=== PATIENT | male | born 1970 | race Caucasian/White ===

== ENCOUNTER 2017-02-11 23:52 | Observation (INO) | payer OTHER ==
--- NOTE | 2017-02-12 00:13 | CPEKG ---
Heart Rate: 91 RR Interval: 659 P-R Interval: 168 QRSD Interval: 84 QT Interval: 336 QTC Interval: 414 P [place]: 18 QRS [place]: 10 T Wave [place]: 1 EKG Severity - BORDERLINE ECG - EKG Impression: SINUS RHYTHM EKG Impression: BORDERLINE T WAVE ABNORMALITIES Electronically Signed By: Tiffani Yanez 12-Feb-2017 19:24:27
[2017-02-12] MEDS ORDERED: NS 1,000 ML IV ONE (00:16)
--- NOTE | 2017-02-12 00:16 | EDPHY ---
H & P Stated Complaint: L arm/jaw pain HPI/ROS: HPI CHIEF COMPLAINT: Left elbow pain, left shoulder pain, left jaw pain, shortness of breath HISTORY OF PRESENT ILLNESS: This patient is a 47-year-old male significant past medical history for hypertension, hyperlipidemia, obesity, no history of cardiac disease or issues with his lung except remote history of pneumonia, no history of PE or DVT, denies chest pain, pleuritic pain or cough. He does complain shortness of breath. His pain is reproducible when he moves his left shoulder and left elbow. He is also tender to palpation over the left elbow. There is no signs of trauma, swelling or redness. He has full range of motion but with range of motion of the elbow and causes great deal of pain dull pain that radiates from his elbow up to her shoulder. Noticed this starting around 430 this afternoon while sitting at his desk. He tells me the pain is constant. He denies chest pain. Past Medical History:Hypertension, hyperlipidemia, brain tumor Past Surgical History: No recent surgical history Social History: Denies daily use drugs alcohol tobacco products Family History: Noncontributory ROS REVIEW OF SYSTEMS: A comprehensive 10 point review of systems is otherwise negative aside from elements mentioned in the history of present illness. Exam Constitutional appears well nontoxic triage nursing summary reviewed, vital signs reviewed, awake/alert. Eyes normal conjunctivae and sclera, EOMI, PERRLA. HENT normal inspection, atraumatic, moist mucus membranes, no epistaxis, neck supple/ no meningismus, no raccoon eyes. Respiratory clear to auscultation bilaterally, normal breath sounds, no respiratory distress, no wheezing. Cardiovascular rate normal, regular rhythm, no murmur, no edema, distal pulses normal. Gastrointestinal soft, non-tender, no rebound, no guarding, normal bowel sounds, no distension, no pulsatile mass. Genitourinary no CVA tenderness. Musculoskeletal full range of motion of the left arm is neurovascular intact warm extremity good distal pulse, tender palpation over the left elbow, tender palpation with range of motion left elbow tender specifically over the olecranon process, tender over the anterior shoulder joint also tender with range of motion, no warmth, no swelling, no redness, no rash, good clip baker strength. Neurovascular intact good cap refill. no midline vertebral tenderness, full range of motion, no calf swelling, no tenderness of extremities , no meningismus, good pulses, neurovascularly intact. Skin pink, warm, & dry, no rash, skin atraumatic. Neurologic awake, alert and oriented x 3, AAOx3, moves all 4 extremities equally, motor intact, sensory intact, CN II-XII intact, normal cerebellar, normal vision, normal speech. Psychiatric normal mood/affect. Heme/Lymph/Immune no lymphadenopathy. Differential Diagnosis: Includes but is not limited to in a particular order, musculoskeletal injury, tendinitis, DVT, PE, pneumonia, pleurisy, CHF, ACS Medical Decision Making: Plan for patient IV established, blood work, EKG, chest x-ray, left shoulder x-ray, left elbow x-ray, ultrasound IV Toradol for pain control. He has no chest pain. Re-evaluation: EKG interpretation by me on record in [employer] system. Impression time of [id number] this is sinus rhythm rate of 91, no acute ischemic changes appreciated specifically no ST elevation, ST depression or T-wave abnormalities. No prolonged intervals. ED x-ray chest two view negative for acute cardiopulmonary disease. Image interpreted by myself ED x-ray left elbow: negative for acute injury or fracture. Image interpreted by myself ED x-ray left shoulder: negative for acute fracture. Image interpreted by myself [id number]: I just re-evaluated this patient he tells me has ongoing jaw pain and left shoulder pain. I will order him IV fentanyl. He has no chest pain at this time. Due to ongoing jaw pain and shoulder pain history of hypertension hyperlipidemia morbid obesity I can't tell if this is an anginal equivalent. I do recommend admission for serial cardiac enzymes. [id number]: D-dimer is pending. Unclear what is causing this patient's left shoulder pain. It may be musculoskeletal. I did reexamine him and reviewed his x-rays blood work and ultrasound. There is nothing acute I found. He is neurovascular intact he has normal sensation good clip baker strength, good distal pulse. I do not think it is a vascular issue. Waiting on D-dimer to make sure this is not a pulmonary embolism. If D-dimer is positive will proceed with a CT angiogram of his chest. It is also possible that this is pain radiating from a the patient's neck leg or cervical radiculopathy. Patient denies trauma. IV fentanyl as been ordered for pain control. I have also consult the hospitalist for admission Dr. Pulido will see and evaluate the patient. Source: Patient - Personal History Current Tetanus/Diphtheria Vaccine: Yes Current Tetanus Diphtheria and Acellular Pertussis (TDAP): Yes - Medical/Surgical History Hx Asthma: Yes Hx Chronic Respiratory Disease: No Hx Diabetes: No Hx Cardiac Disease: No Hx Renal Disease: No Hx Cirrhosis: No Hx Alcoholism: No Hx HIV/AIDS: No Hx Splenectomy or Spleen Trauma: No Other PMH: PMH: pituitary prolactinoma, possible SANJIV, HTN, hyperlipidemia, hx giardia, hx recurrent pneumonia. PSH:tonsillectomy - Social History Smoking Status: Never smoked Constitutional: Initial Vital Signs Temperature (C) 37.3 C 02/11/17 23:57 Heart Rate 93 02/11/17 23:57 Respiratory Rate 16 02/11/17 23:57 Blood Pressure 141/91 H 02/11/17 23:57 O2 Sat (%) 91 L 02/11/17 23:57 O2 Delivery Mode Nasal Cannula O2 (L/minute) 2 Allergies/Adverse Reactions: hydrocodone Allergy (Intermediate, Verified 02/12/17 09:38) Vomiting lisinopril Allergy (Intermediate, Verified 02/12/17 09:38) Other-Enter Comments Home Medications: Medication Instructions Recorded Aspirin [Aspirin 81mg (*)] 81 mg PO DAILY 08/09/14 Cabergoline [Dostinex (*)] 0.5 mg PO FU@09 08/09/14 Testosterone IM [Testosterone 200 mg IM Q10D 08/09/14 100mg/ml IM inj (*)] Albuterol [Proventil Inhaler HFA 1 - 2 puffs IH DAILY PRN 07/01/16 (*)] Atorvastatin Calcium [Lipitor 40 40 mg PO DAILY 07/01/16 mg (*)] Chlorthalidone [Chlorthalidone 25 25 mg PO DAILY 07/01/16 mg (*)] Losartan Potassium [Cozaar 50 mg 50 mg PO BID 07/01/16 (*)] Multivitamins [Multivitamin (*)] 1 each PO DAILY 07/01/16 Vardenafil HCl [Levitra] 20 mg PO PRN PRN 07/01/16 oxyCODONE/APAP 5/325 [Percocet 1 tab PO Q4-6PRN PRN 07/01/16 5/325 (*)] Acetaminophen [Tylenol 325mg (*)] 650 mg PO Q4 PRN #0 tab 07/02/16 Medical Decision Making - Data Points Laboratory Results: Laboratory Results 02/12/17 00:20 02/12/17 00:20 Medications Given: Discontinued Medications Fentanyl (Sublimaze) 50 mcg IVP EDNOW ONE Stop: 02/12/17 03:34 Last Admin: 02/12/17 03:45 Dose: 50 mcg Sodium Chloride (Ns) 1,000 mls @ 0 mls/hr IV ONCE ONE PRN Reason: Wide Open Stop: 02/12/17 00:17 Last Admin: 02/12/17 00:27 Dose: 1,000 mls Ketorolac Tromethamine (Toradol) 30 mg IVP EDNOW ONE Stop: 02/12/17 00:25 Last Admin: 02/12/17 01:20 Dose: 30 mg Departure - Departure Disposition: [facility] Inpatient Acute Clinical Impression: Left arm pain Condition: Good
[2017-02-12] MEDS ORDERED: KETOROLAC 30 MG/1 ML SDV IVP ONE (00:24)
[2017-02-12 00:51] LABS: ABSOLUTE IMMATURE GRANULOCYTES 0.12 10^3/uL (0.00-0.10); ADD DIFF? NO; ADD MORPH? NO; ADD SCAN? NO; ATYPICAL LYMPHOCYTE FLAG 10 (0-99); FRAGMENT RBC FLAG 0 (0-99); HEMATOCRIT 44.6 % (40.0-51.0); HEMOGLOBIN 15.7 g/dL (13.7-17.5); LEFT SHIFT FLG 10 (0-99); LIPEMIA HEMOLYSIS FLAG 90 (0-99); MEAN CELL HEMOGLOBIN 31.1 pg (27.9-34.1); MEAN CELL HEMOGLOBIN CONCENTR. 35.2 g/dL (32.4-36.7); MEAN CELL VOLUME 88.3 fL (81.5-99.8); MEAN PLATELET VOLUME 10.1 fL (8.7-11.7); PLATELET CLUMPS FLAG 0 (0-99); PLATELET COUNT 250 10^3/uL (150-400); RED BLOOD CELL COUNT 5.05 10^6/uL (4.40-6.38); RED CELL DISTRIBUTION WIDTH 13.7 % (11.5-15.2)
[2017-02-12 01:01] LABS: ALANINE AMINOTRANSFERASE 55 IU/L (21-72); ALBUMIN 4.3 g/dL (3.5-5.0); ALKALINE PHOSPHATASE 57 IU/L (38-126); ANION GAP 12 mEq/L (8-16); ASPARTATE AMINOTRANSFERASE 30 IU/L (17-59); BILIRUBIN,TOTAL 0.6 mg/dL (0.1-1.4); BILIRUBIN-CONJUGATED 0.4 mg/dL (0.0-0.5); BILIRUBIN-UNCONJUGATED 0.2 mg/dL (0.0-1.1); CALCIUM 9.6 mg/dL (8.5-10.4); CARBON DIOXIDE 23 mEq/l (22-31); CHLORIDE 103 mEq/L (97-110); GLOMERULAR FILTRATION RATE > 60; GLUCOSE 140 mg/dL (70-100); MAGNESIUM 1.7 mg/dL (1.6-2.3); POTASSIUM 3.9 mEq/L (3.5-5.2); SODIUM 138 mEq/L (134-144); TOTAL PROTEIN 7.6 g/dL (6.3-8.2)
[2017-02-12 01:27] LABS: TROPONIN I < 0.012 ng/mL (0-0.034)
[2017-02-12] MEDS ORDERED: fentaNYL 100 MCG/2 ML INJ IVP ONE (03:33)
[2017-02-12 04:06] LABS: INR 1.07 (0.83-1.16); PROTIME(PATIENT) 13.8 SEC (12.0-15.0)
[2017-02-12 04:07] LABS: APTT 27.2 SEC (23.0-38.0)
--- NOTE | 2017-02-12 05:09 | PDGENHP ---
History and Physical - Chief Complaint L arm and jaw numbness, pain - History of Present Illness Patient is a 47 year old male with hypertension, hyperlipidemia, migraine headaches who presents to the ED with complaint of L arm discomfort and tingling. He reports around 4pm he felt a tingling in his L arm, denies any associated trauma to his arm or body recently, denies any neck pain. The paraesthesias continued and intensified over the following several hours and began radiating up his L arm into his posterior shoulder. This evening, as he was driving to meet his friends at a bar, he then began feeling the tingling sensation in his L lower jaw, associated with shortness of breath. At this point , he felt extremely anxious, so he drove himself to the ED for further evaluation. He denies any obvious anterior chest pain, palpitations, diaphoresis or dizziness. He also denies any recent fever, chills, abdominal pain, nausea, vomiting, diarrhea, dysuria or recent travel. Patient does report a family history of cardiac disease in his father's side of the family, including his father and an uncle who had early CAD. He did have a stress test several years ago, which he reports was normal. Patient denies any tobacco use, does not regularly excise. Of note, he does report an increase in the frequency and severity of his migraine headaches over the past 1 month. He does occasionally get auras with his migraines, but has never had a complex migraine. He was recently being worked up as an outpatient for lower extremity neuropathy. On arrival to the ED, pateint was afebrile, hemodynamically stable. His labs, including CBC, troponin, BMP and d-dimer were unremarkable. CXR, L extremity x- rays and LUE doppler were also unremarkable for any acute pathology. EKG showed NSR with some lateral twave flattening. He was given pain control and admitted to the hospitalist service for further management. History Information - Allergies/Home Medication List Allergies/Adverse Reactions: hydrocodone Allergy (Verified 02/11/17 23:56) Home Medications: Aspirin [Aspirin 81mg (*)] 81 mg PO DAILY 08/09/14 [Last Taken 06/30/16] Cabergoline [Dostinex (*)] 0.5 mg PO SA 08/09/14 [Last Taken 06/26/16] Testosterone IM [Testosterone 100mg/ml IM inj (*)] 200 mg IM Q10D 08/09/14 [ Last Taken 1 Week Ago] Albuterol [Proventil Inhaler HFA (*)] 1 - 2 puffs IH DAILY PRN 07/01/16 [Last Taken Unknown] Atorvastatin Calcium [Lipitor 40 mg (*)] 40 mg PO DAILY 07/01/16 [Last Taken ] Chlorthalidone [Chlorthalidone 25 mg (*)] 25 mg PO DAILY 07/01/16 [Last Taken ] Losartan Potassium [Cozaar 50 mg (*)] 50 mg PO BID 07/01/16 [Last Taken 09:00] Multivitamins [Multivitamin (*)] 1 each PO DAILY 07/01/16 [Last Taken Unknown] Vardenafil HCl [Levitra] 20 mg PO PRN PRN 07/01/16 [Last Taken Unknown] oxyCODONE/APAP 5/325 [Percocet 5/325 (*)] 1 tab PO Q4-6PRN PRN 07/01/16 [Last Taken 06/30/16 21:00] I have personally reviewed and updated: family history, medical history, social history, surgical history - Past Medical History Additional medical history: hypertension. hyperlipidemia. migraine headaches. prolactinoma - Surgical History Additional surgical history: tonsillectomy - Family History Additional family history: F: CAD in 60's. paternal uncle: CAD in early 50s - Social History Smoking Status: Never smoked Alcohol Use: Occasionally Drug Use: None Additional social history: Patient originally from [place], has lived in [place] for > 20 years. Works in [employer]. Review of Systems ROS: 10pt was reviewed & negative except for what was stated in HPI & below Physical Exam Temp Pulse Resp BP Pulse Ox 37 C 83 16 129/98 H 97 02/12/17 04:11 02/12/17 04:11 02/12/17 04:11 02/12/17 04:11 02/12/17 04:11 Constitutional: no apparent distress, appears nourished, not in pain, obese Eyes: PERRL, anicteric sclera, EOMI Ears, Nose, Mouth, Throat: moist mucous membranes, hearing normal, ears appear normal, no oral mucosal ulcers Cardiovascular: regular rate and rhythym, no murmur, rub, or gallop, pulses symmetric bilaterally, No JVD, No edema Peripheral Pulses: 2+: dorsalis-pedis (R), dorsalis-pedis (L) Respiratory: no respiratory distress, no rales or rhonchi, clear to auscultation Gastrointestinal: normoactive bowel sounds, soft, non-tender abdomen, no palpable masses, No guarding, No rebound Genitourinary: no bladder fullness, no bladder tenderness Skin: warm, normal color, no rashes or abrasions, no fluctuance, no induration, No mottled Musculoskeletal: full muscle strength, no muscle tenderness, normal joint ROM, no joint effusions Neurologic: AAOx3, sensation intact bilaterally, CN II-XII Intact, No weakness, No numbness, No pronator drift, No facial droop Psychiatric: interacting appropriately, not anxious, not encephalopathic, thought process linear Lab Data & Imaging Review 02/12/17 00:20 02/12/17 00:20 WBC 11.48 10^3/uL (3.80-9.50) H 02/12/17 00:20 RBC 5.05 10^6/uL (4.40-6.38) 02/12/17 00:20 Hgb 15.7 g/dL (13.7-17.5) 02/12/17 00:20 Hct 44.6 % (40.0-51.0) 02/12/17 00:20 MCV 88.3 fL (81.5-99.8) 02/12/17 00:20 MCH 31.1 pg (27.9-34.1) 02/12/17 00:20 MCHC 35.2 g/dL (32.4-36.7) 02/12/17 00:20 RDW 13.7 % (11.5-15.2) 02/12/17 00:20 Plt Count 250 10^3/uL (150-400) 02/12/17 00:20 MPV 10.1 fL (8.7-11.7) 02/12/17 00:20 Neut % (Auto) 65.4 % (39.3-74.2) 02/12/17 00:20 Lymph % (Auto) 20.5 % (15.0-45.0) 02/12/17 00:20 [place] % (Auto) 10.0 % (4.5-13.0) 02/12/17 00:20 Eos % (Auto) 2.1 % (0.6-7.6) 02/12/17 00:20 Baso % (Auto) 1.0 % (0.3-1.7) 02/12/17 00:20 Nucleat RBC Rel Count 0.0 % (0.0-0.2) 02/12/17 00:20 Absolute Neuts (auto) 7.51 10^3/uL (1.70-6.50) H 02/12/17 00:20 Absolute Lymphs (auto) 2.35 10^3/uL (1.00-3.00) 02/12/17 00:20 Absolute Monos (auto) 1.15 10^3/uL (0.30-0.80) H 02/12/17 00:20 Absolute Eos (auto) 0.24 10^3/uL (0.03-0.40) 02/12/17 00:20 Absolute Basos (auto) 0.11 10^3/uL (0.02-0.10) H 02/12/17 00:20 Absolute Nucleated RBC 0.00 10^3/uL (0-0.01) 02/12/17 00:20 Immature Gran % 1.0 % (0.0-1.1) 02/12/17 00:20 Immature Gran # 0.12 10^3/uL (0.00-0.10) H 02/12/17 00:20 PT 13.8 SEC (12.0-15.0) 02/12/17 03:50 INR 1.07 (0.83-1.16) 02/12/17 03:50 APTT 27.2 SEC (23.0-38.0) 02/12/17 03:50 D-Dimer < 0.27 ug/mLFEU (0.00-0.50) 02/12/17 03:50 Sodium 138 mEq/L (134-144) 02/12/17 00:20 Potassium 3.9 mEq/L (3.5-5.2) 02/12/17 00:20 Chloride 103 mEq/L (97-110) 02/12/17 00:20 Carbon Dioxide 23 mEq/l (22-31) 02/12/17 00:20 Anion Gap 12 mEq/L (8-16) 02/12/17 00:20 BUN 17 mg/dL (7-23) 02/12/17 00:20 Creatinine 1.0 mg/dL (0.7-1.3) 02/12/17 00:20 Estimated GFR > 60 02/12/17 00:20 Glucose 140 mg/dL (70-100) H 02/12/17 00:20 Calcium 9.6 mg/dL (8.5-10.4) 02/12/17 00:20 Magnesium 1.7 mg/dL (1.6-2.3) 02/12/17 00:20 Total Bilirubin 0.6 mg/dL (0.1-1.4) 02/12/17 00:20 Conjugated Bilirubin 0.4 mg/dL (0.0-0.5) 02/12/17 00:20 Unconjugated Bilirubin 0.2 mg/dL (0.0-1.1) 02/12/17 00:20 AST 30 IU/L (17-59) 02/12/17 00:20 ALT 55 IU/L (21-72) 02/12/17 00:20 Alkaline Phosphatase 57 IU/L (38-126) 02/12/17 00:20 Creatine Kinase 104 IU/L (0-224) 02/12/17 00:20 CK-MB (CK-2) Fraction 0.80 ng/mL (0-3.19) 02/12/17 00:20 Troponin I < 0.012 ng/mL (0-0.034) 02/12/17 00:20 NT-Pro-B Natriuret Pep < 11 pg/mL (0-125) 02/12/17 00:20 Total Protein 7.6 g/dL (6.3-8.2) 02/12/17 00:20 Albumin 4.3 g/dL (3.5-5.0) 02/12/17 00:20 Lipase 60.0 IU/L (23-300) 02/12/17 00:20 Visualized and Interpreted Chest x-ray results: Yes Chest X-Ray results: no infiltrate, normal Visualized and Interpreted imaging results: Yes Interpretation: X-rays of LUE: no obvious fractures, official read pending. LUE Doppler: no obvious DVT Visualized and Interpreted EKG results: Yes EKG Interpretation: Positive for: normal sinsus rhythm (lateral twave flattening ) Assessment & Plan Assessment: Patient is a 47 year old male with HTN, HLD, obesity and migraine headaches who presents to the ED with LUE paresthesias that radiated in his L jaw. ED evaluation revealed normal labs, imaging and EKG thus far. Plan: # L arm paresthesias Description of symptoms seem to be musculoskeletal in origin, possibly related to ulnar neuropathy vs cervical radiculopathy vs complex migraine (although patient currently denies headache). He is neurovascularly intact on my exam. However, given his cardiac risk factors, will rule out cardiac etiology with serial cardiac enzymes and, if negative, will further risk stratify with stress test. # hypertension BP stable on presentation. WIll confirm and cont home meds. # dispo: admit to observation status to rule out cardiac etiology of his symptoms # gen: NPO full code
[2017-02-12] MEDS: KETOROLAC 15 MG/1 ML SDV IVP SCH ×4 (05:55→18:44)
[2017-02-12 06:53] LABS: CHOLESTEROL 177 mg/dL (140-200); CHOLESTEROL/HDL RATIO 4.12 RATIO (1.00-4.97); HIGH DENSITY LIPOPROTEIN 43 mg/dL (40-65); LDL/HDL RATIO 2.07 RATIO (1.00-3.64); LOW DENSITY LIPOPROTEIN 89 mg/dL (70-100); NON-HIGH DENSITY LIPOPROTEIN 134 mg/dL (90-129); TRIGLYCERIDE 229 mg/dL (40-150); VERY LOW DENSITY LIPOPROTEINS 45 mg/dL (8-25)
[2017-02-12 07:05] LABS: TROPONIN I < 0.012 ng/mL (0-0.034)
--- NOTE | 2017-02-12 08:07 | CPEKG ---
Heart Rate: 71 RR Interval: 845 P-R Interval: 184 QRSD Interval: 86 QT Interval: 388 QTC Interval: 422 P [place]: 35 QRS [place]: 32 T Wave [place]: 2 EKG Severity - NORMAL ECG - EKG Impression: SINUS RHYTHM Electronically Signed By: Nghia Kwok 12-Feb-2017 12:57:43
[2017-02-12] MEDS ORDERED: OXYCODONE/APAP 5/325 TAB PO PRN (09:54)
[2017-02-12] MEDS ORDERED: ALBUTEROL 60 PUFFS/8 GM MDI IH PRN (09:54)
[2017-02-12] MEDS ORDERED: ACETAMINOPHEN 325 MG TAB PO PRN (09:54)
[2017-02-12] MEDS ORDERED: REGADENOSON 0.4 MG/5 ML SYR IVP ONE (11:53)
[2017-02-12] MEDS: CHLORTHALIDONE 25 MG TAB PO SCH (13:10)
[2017-02-12] MEDS: ATORVASTATIN CALCIUM 40 MG TAB PO SCH (13:10)
[2017-02-12] MEDS: ASPIRIN 81 MG CHEWABLE TAB PO SCH (13:27)
--- NOTE | 2017-02-12 13:52 | CPR ---
[f rep st] NONINVASIVE CARDIAC PROCEDURE REPORT PROCEDURE: Exercise treadmill study MPI study INDICATION FOR PROCEDURE: Chest pressure, abnormal electrocardiogram. PRE: After obtaining informed consent, patient was placed on electrocardiogram. Initial EKG shows sinus rhythm, normal axis, Q-waves noted in V1 and V2, nonspecific T-wave abnormalities in inferior leads. The patient denies any chest pain, shortness of breath, initial blood pressure of 134/76. STRESS: 1. Patient placed on exercise treadmill, following standard Robert protocol the following findings. 2. Patient exercised for 6 minutes and 29 seconds. 3. 7.6 METS. 4. Attained a heart rate of 152 BPM which was 88% of MPHR. 5. Patient had no chest pains or symptoms suggesting of ischemia at peak exercise. 6. Patient did have submillimeter upsloping ST depression in lead I ( nondiagnostic for ischemia). 7. Patient had no ectopy throughout the testing. 8. BP variation. Resting blood pressure 134/76, blood pressure at peak 210/80. 9. Patient noted to have SpO2 to drop to 86% at peak exercise. 10. Test was stopped due to maximum effort. 11. Barr treadmill score of 6, placing patient at low cardiovascular risk. RECOVERY: Patient recovered for 5 minutes, within that time when heart rate did return back to normal, final blood pressure SpO2 returned back to 90% within 1 minute, greater than 90% after 1 minute of recovery. Final blood pressure score of 188/86. The patient remains with no chest pain and no symptoms of ischemia. No ectopy noted. IMPRESSION: A 47-year-old male reporting an episode of chest pressure, wound to the arm, underwent going ETT MPI study, the patient exercised for 6 minutes and 29 seconds, had no symptoms of ischemia, EKG at peak exercise, nondiagnostic for ischemia, no ectopy noted throughout the study, patient was noted to have hypertensive response with exercise, and desaturated down to 86% at peak exercise, which returned back to normal. Barr treadmill score of 6, placing him at low cardiovascular risk. Results went over with Dr. Foley. /[id number]/MODL MTDD
[2017-02-12] MEDS: OXYCODONE/APAP 5/325 TAB PO PRN (18:48)
[2017-02-12] MEDS: LOSARTAN POTASSIUM 50 MG TAB PO SCH (19:39)
[2017-02-13] MEDS: OXYCODONE/APAP 5/325 TAB PO PRN (01:50)
[2017-02-13] MEDS: KETOROLAC 15 MG/1 ML SDV IVP SCH (04:09)
--- NOTE | 2017-02-13 05:57 | CPEKG ---
Heart Rate: 76 RR Interval: 789 P-R Interval: 168 QRSD Interval: 84 QT Interval: 392 QTC Interval: 441 P [place]: 44 QRS [place]: 57 T Wave [place]: 12 EKG Severity - NORMAL ECG - EKG Impression: SINUS RHYTHM Electronically Signed By: Tiffani Yanez 13-Feb-2017 15:28:01
[2017-02-13 08:48] VITALS: BP 127/80; PULSE 74; RESP 20; TEMP 97.7; O2SAT 90
[2017-02-13] MEDS: CHLORTHALIDONE 25 MG TAB PO SCH (08:50)
[2017-02-13] MEDS: ATORVASTATIN CALCIUM 40 MG TAB PO SCH (08:50)
[2017-02-13] MEDS: LOSARTAN POTASSIUM 50 MG TAB PO SCH (08:51)
[2017-02-13] MEDS ORDERED: CABERGOLINE 0.5 MG TAB PO SCH (09:00)
[2017-02-13] MEDS ORDERED: MULTIVITAMINS 1 EACH TAB PO SCH (09:00)
[2017-02-13] MEDS: ASPIRIN 81 MG CHEWABLE TAB PO SCH (10:40)
--- NOTE | 2017-02-13 11:26 | HOSPPROG ---
Hospitalist Progress Note Assessment/Plan: 47 yo M w arm pain neg trop tele and stress home today see dc summary Objective: Vital Signs Temp Pulse Resp BP Pulse Ox 36.5 C 74 20 127/80 H 90 L 02/13/17 08:48 02/13/17 08:48 02/13/17 08:48 02/13/17 08:48 02/13/17 08:48 02/12/17 02/13/17 02/14/17 05:59 05:59 05:59 Intake Total 1000 800 Balance 1000 800 PT 13.8 SEC (12.0-15.0) 02/12/17 03:50 INR 1.07 (0.83-1.16) 02/12/17 03:50 - Physical Exam Constitutional: no apparent distress, appears nourished Eyes: PERRL, anicteric sclera Ears, Nose, Mouth, Throat: moist mucous membranes, hearing normal Cardiovascular: regular rate and rhythym, no murmur, rub, or gallop Respiratory: no respiratory distress, no rales or rhonchi Gastrointestinal: normoactive bowel sounds Genitourinary: No garcia in urethra Skin: warm, normal color Musculoskeletal: full muscle strength, no muscle tenderness ICD10 Worksheet Patient Problems: Problems Problem Status Onset Left arm pain Acute Abdominal pain Acute
--- NOTE | 2017-02-13 11:48 | GDS ---
[f rep st] DISCHARGE SUMMARY DISCHARGE DIAGNOSES: 1. Hypertension. 2. Hyperlipidemia. 3. Arm pain. Please see admission History and Physical by Dr. Justa Pulido. The patient presented with arm pain. He had a nonischemic EKG, negative shoulder films, troponins that were negative. Stress imag es showed 6 minutes on the Robert protocol with no EKG changes, but he had some possible inferior thi nning. The rest images were the same. He is discharged home on unchanged medication regimen. /[id number]/MODL
[2017-02-17] MEDS ORDERED: TESTOSTERONE IM 100 MG/ML SYRINGE IM SCH (10:00)
== END 2017-02-13 12:50 | disposition home or self-care (01) ==
LOC: F2W 02-12 05:29
PROVIDERS: ADMIT Internal Medicine; ATTEND Internal Medicine
DX: I10 Essential (primary) hypertension (principal); E78.5 Hyperlipidemia, unspecified; M25.512 Pain in left shoulder; E66.9 Obesity, unspecified; Z87.01 Personal history of pneumonia (recurrent); Z86.011 Personal history of benign neoplasm of the brain; Z82.49 Family history of ischemic heart disease and other diseases of the circulatory system
CPT/HCPCS: 71020; 73030; 73080; 78452; 93005; 93017; 93971; 96374; 96375; 99285; A9500; J1885; J2785; J3010; J8515

== ENCOUNTER 2017-04-25 12:17 | Day surgery (SDC) | payer OTHER ==
[2017-04-25] MEDS ORDERED: LR 1,000 ML IV ONE (13:03)
[2017-04-25] MEDS ORDERED: LIDOCAINE 1% 2 ML INJ ID PRN (13:03)
[2017-04-25] MEDS ORDERED: ACETAMINOPHEN 500 MG TAB PO PRN (13:56)
[2017-04-25] MEDS ORDERED: ONDANSETRON 4 MG/2 ML VIAL IVP PRN (13:56)
[2017-04-25] MEDS ORDERED: OXYCODONE/APAP 5/325 TAB PO PRN (13:56)
[2017-04-25] MEDS ORDERED: NALOXONE HCL 0.4 MG/ML INJ IVP PRN (13:56)
[2017-04-25] MEDS ORDERED: PROMETHAZINE HCL 25 MG/ML INJ IVP PRN (13:56)
[2017-04-25] MEDS ORDERED: fentaNYL 100 MCG/2 ML INJ IVP PRN (13:56)
--- NOTE | 2017-04-25 13:56 | PDANEPAE ---
ANE History of Present Illness blood in stool ANE Past Medical History - Cardiovascular History Hx Hypertension: Yes Hx Arrhythmias: No Hx Chest Pain: No Hx Coronary Artery / Peripheral Vascular Disease: No Hx CHF / Valvular Disease: No Hx Palpitations: No - Pulmonary History Hx COPD: No Hx Asthma/Reactive Airway Disease: No Hx Recent Upper Respiratory Infection: No Hx Oxygen in Use at Home: No - Neurologic History Hx Cerebrovascular Accident: No Hx Seizures: No Hx Dementia: No - Endocrine History Hx Diabetes: No - Renal History Hx Renal Disorders: No - Liver History Hx Hepatic Disorders: No - Neurological & Psychiatric Hx Hx Neurological and Psychiatric Disorders: Yes - Cancer History Hx Cancer: No - Congenital Disorder History Hx Congenital Disorders: No - GI History Hx Gastrointestinal Disorders: No - Chronic Pain History Chronic Pain: No ANE Review of Systems - Exercise capacity Exercise capacity: >=4 METS METS (RN): 4 METS - Systems Constitutional: Reports: no symptoms EENMT: Reports: no symptoms Cardiac: Reports: no symptoms Gastrointestinal: Reports: black stools Neurological: Reports: tremors (prolactinoma), other ANE Patient History - Allergies Allergies/Adverse Reactions: hydrocodone Allergy (Intermediate, Verified 04/19/17 15:18) Vomiting lisinopril Allergy (Intermediate, Verified 04/19/17 15:18) Other-Enter Comments - Home Medications Home Medications: Aspirin [Aspirin 81mg (*)] 81 mg PO DAILY 08/09/14 [Last Taken 04/18/17] Cabergoline [Dostinex (*)] 0.5 mg PO FU@09 08/09/14 [Last Taken 04/24/17] Testosterone IM [Testosterone 100mg/ml IM inj (*)] 200 mg IM Q10D 08/09/14 [ Last Taken 02/07/17] Albuterol [Proventil Inhaler HFA (*)] 1 - 2 puffs IH DAILY PRN 07/01/16 [Last Taken Unknown] Atorvastatin Calcium [Lipitor 40 mg (*)] 40 mg PO DAILY 07/01/16 [Last Taken 06:00] Chlorthalidone [Chlorthalidone 25 mg (*)] 25 mg PO DAILY 07/01/16 [Last Taken ] Losartan Potassium [Cozaar 50 mg (*)] 50 mg PO BID 07/01/16 [Last Taken 06:00] Multivitamins [Multivitamin (*)] 1 each PO DAILY 07/01/16 [Last Taken 04/24/17] Vardenafil HCl [Levitra] 20 mg PO PRN PRN 07/01/16 [Last Taken 04/17/17] - NPO status NPO Since - Liquids (Date): 04/24/17 NPO Since - Liquids (Time): 22:00 NPO Since - Solids (Date): 04/24/17 NPO Since - Solids (Time): 08:00 - Smoking Hx Smoking Status: Never smoked ANE Labs/Vital Signs - Vital Signs Blood Pressure: 139/99 Heart Rate: 82 Respiratory Rate: 16 O2 Sat (%): 91 Height: 185.42 cm Weight: 151.953 kg ANE Physical Exam - Airway Mallampati Score: Class 2 Mouth exam: normal dental/mouth exam - Pulmonary Pulmonary: no respiratory distress - Cardiovascular Cardiovascular: regular rate and rhythym - ASA Status ASA Status: III ANE Anesthesia Plan Anesthesia Plan: GA with mask
[2017-04-25] MEDS ORDERED: LIDOCAINE 2% 5 ML SDV ONE (13:58)
[2017-04-25] MEDS ORDERED: PROPOFOL/EMULSION 500 MG/50 ML BOTTLE IV ONE ×2 (13:58→14:28)
--- NOTE | 2017-04-25 14:02 | PDGENHP ---
History & Physical Chief Complaint: abdominal pain, blood in stools History of Present Illness: 47 year old male presents with complaints of LUQ/ LLQ pain, change in bowel habits, diarrhea and blood in stools. Pertinent Past, Social, Family History: SoHx: no cigs. + alcohol. FaMHx: No CRC. PMx: prolactinoma Relevant Physical Exam: HEENT: Anicteric. CV: RRR +s1s2. No m/r/g. Lungs: CTAB. No w/r/r. Abd: soft, nt, + bs. Cardiorespiratory Assessment: ASA 3
--- NOTE | 2017-04-25 14:48 | POSTOPPROG ---
Post Op Note Date of Operation: 04/25/17 Surgeon: Nikolai Veronica Anesthesia: LMA Pre-op Diagnosis: diarrhea, abdominal pain, dsyphagia Post-op Diagnosis: diarrhea, abd pain,dysphaiga Indication: diarrhea, abd pain Procedure: egd with bx, colonoscopy with bx. Findings: gastritis, gsatric polyps Inf/Abcess present in the surg proc area at time of surgery?: No
[2017-04-25 15:50] VITALS: RESP 14
[2017-04-25 15:55] VITALS: TEMP 98.1
[2017-04-25 16:04] VITALS: BP 137/84; PULSE 86; O2SAT 93
--- NOTE | 2017-04-25 16:16 | POSTANESTH ---
Post Anesthetic Evaluation Cardiovascular Status: Normal, Stable Respiratory Status: Normal, Stable Level of Consciousness/Mental Status: Can Participate in Eval Pain Control: Adequate, Prn Tx Ordered Nausea/Vomiting Control: Adequate, Prn Tx Ordered Complications Possibly Related to Anesthesia: None Noted
--- NOTE | 2017-04-25 17:29 | GPN ---
[f rep st] PROCEDURE NOTE DATE OF PROCEDURE: 04/25/2017 PROCEDURE: Esophagogastroduodenoscopy with biopsy. INDICATION: The patient is a 47-year-old male, who presents with complaints of dysphagia, left upper quadrant abdominal pain as well as diarrhea. CONSENT: Risks, benefits, and alternatives of the procedure were discussed in great detail with the patient. Risks of infection, bleeding, perforation, and sedation were discussed. All questions answered. Informed consent obtained. MEDICATIONS: Propofol. Please see anesthesiology record for details. ESTIMATED BLOOD LOSS: Insignificant. ESOPHAGOGASTRODUODENOSCOPY EXAMINATION: The Olympus upper endoscope was inserted into the mouth and advanced into the esophagus. The proximal esophagus was normal in appearance except for an inlet patch. In the midesophagus, biopsies were taken to rule out eosinophilic esophagitis. In the midesophagus, a 3 mm polyp was seen and removed by biopsy forceps. The distal esophagus was normal in appearance. The stomach was entered and closely examined, including retroflexed views of the angularis, cardia and fundus. The mucosa in the antrum and body was erythematous in a patchy distribution, and biopsies were taken. Multiple small sessile polyps were seen on the greater curvature, and biopsies were taken. The duodenal bulb and second portion of duodenum were normal in appearance. Biopsies were taken to rule out celiac sprue. IMPRESSION: 1. Esophageal polyp status post biopsy. 2. Biopsies to rule out eosinophilic esophagitis. 3. Gastritis status post biopsy. 4. Gastric polyp status post biopsy. 5. Biopsies to rule out celiac sprue. 6. No obvious cause of symptoms seen. GERD versus functional versus other? Consider trial of PPI and antispasmodic therapy. RECOMMENDATIONS: 1. Follow up on biopsy results. 2. Proceed with colonoscopy. /[id number]/MODL MTDD
--- NOTE | 2017-04-25 18:49 | GPN ---
[f rep st] PROCEDURE NOTE DATE OF PROCEDURE: 04/25/2017 PROCEDURE: Colonoscopy with biopsy. INDICATION: The patient is a 47-year-old male, who presents for evaluation of blood in his stools as well as a change in bowel habits. He presents for further evaluation. CONSENT: Risks, benefits, and alternatives of the procedure were discussed in great detail with the patient. Risks of infection, bleeding, perforation, and sedation were discussed. All questions answered. Informed consent was obtained. MEDICATIONS: Propofol. Please see anesthesiology record for details. ESTIMATED BLOOD LOSS: Insignificant. COLONOSCOPIC EVALUATION: A rectal exam was done and internal hemorrhoids were noted. The Olympus adult colonoscope was introduced into the rectum and advanced to the cecum, where the ileocecal valve and appendiceal orifice were seen. The quality of prep was fair. The colonic mucosa was carefully examined on both insertion and withdrawal of the scope. No masses or polyps were seen. Random biopsies were taken to rule out microscopic colitis. IMPRESSION: 1. Hemorrhoids. 2. Random biopsies for microscopic colitis. 3. Etiology? No cause of symptoms seen. Functional? Start trail of antispasmodic. RECOMMENDATIONS: 1. Await biopsy results. 2. Follow up in the office in 6 weeks. /[id number]/MODL MTDD
== END 2017-04-25 16:34 | disposition home or self-care (01) ==
LOC: FSGY 12:17
PROVIDERS: ATTEND Internal Medicine Gastroenterology
PROC: 0DB28ZX Excision of Middle Esophagus, Via Natural or Artificial Opening Endoscopic, Diagnostic (ICD-10-PCS; principal; 2017-04-25 13:45)
PROC: 0DBE8ZX Excision of Large Intestine, Via Natural or Artificial Opening Endoscopic, Diagnostic (ICD-10-PCS; principal; 2017-04-25 13:45)
PROC: 0DB68ZX Excision of Stomach, Via Natural or Artificial Opening Endoscopic, Diagnostic (ICD-10-PCS; principal; 2017-04-25 13:45)
PROC: 0DB38ZX Excision of Lower Esophagus, Via Natural or Artificial Opening Endoscopic, Diagnostic (ICD-10-PCS; principal; 2017-04-25 13:45)
PROC: 0DB98ZX Excision of Duodenum, Via Natural or Artificial Opening Endoscopic, Diagnostic (ICD-10-PCS; principal; 2017-04-25 13:45)
DX: R10.32 Left lower quadrant pain (principal); R10.12 Left upper quadrant pain; K29.70 Gastritis, unspecified, without bleeding; K31.7 Polyp of stomach and duodenum; K31.89 Other diseases of stomach and duodenum; R19.7 Diarrhea, unspecified; K92.1 Melena; R19.4 Change in bowel habit; R13.10 Dysphagia, unspecified; K64.8 Other hemorrhoids
CPT/HCPCS: J2704

== ENCOUNTER → 2017-06-04 | Outpatient (CLI) | payer OTHER | LOC: FCPNEURO 21:22 | PROVIDERS: ATTEND Internal Medicine Sleep Medicine | DX: G47.31 Primary central sleep apnea (principal); G47.33 Obstructive sleep apnea (adult) (pediatric) ==

== ENCOUNTER → 2017-06-30 | Outpatient (CLI) | payer OTHER | LOC: FIMAGING 13:18 | PROVIDERS: ATTEND Physician Assistant | DX: M79.642 Pain in left hand (principal); W19.XXXA Unspecified fall, initial encounter ==

== ENCOUNTER → 2018-08-29 | Outpatient (CLI) | payer OTHER | LOC: FIMAGING 16:47 | PROVIDERS: ATTEND Registered Nurse | DX: S93.401A Sprain of unspecified ligament of right ankle, initial encounter (principal); Q65.89 Other specified congenital deformities of hip; M53.3 Sacrococcygeal disorders, not elsewhere classified ==

== ENCOUNTER → 2018-08-29 | Outpatient (CLI) | payer OTHER | LOC: FIMAGING 10:02 | PROVIDERS: ATTEND Family Medicine | DX: R91.1 Solitary pulmonary nodule (principal); R59.0 Localized enlarged lymph nodes ==

== ENCOUNTER 2018-09-09 00:26 | Emergency (ER) | payer OTHER ==
[2018-09-09] MEDS ORDERED: NS 1,000 ML IV ONE (00:53)
[2018-09-09] MEDS ORDERED: IBUPROFEN 800 MG TAB PO ONE (00:54)
--- NOTE | 2018-09-09 00:54 | EDPHY ---
H & P Stated Complaint: Fell in bathroom approx 1 hour ago c/o MINOR and back pain. Time Seen by Provider: 09/09/18 00:54 HPI/ROS: HPI CHIEF COMPLAINT: Fall, head strike HISTORY OF PRESENT ILLNESS: 48-year-old male, history of GERD, peripheral neuropathy, intestinal issues, hypertension, hyperlipidemia and obesity, presents emergency room after he fell in his bathroom. He is unsure exactly what caused him to fall. Is not recall the events exactly. He denies any chest pain shortness of breath. Main complaint is right posterior headache where he struck his head. No laceration. He denies any neck pain. Denies chest pain or shortness of breath. He also complains of right lateral lower rib pain. Past Medical History: Intracranial tumor from , GERD, hypertension "intestinal issues", peripheral neuropathy Past Surgical History: No recent surgery Social History: Denies drugs alcohol tobacco. Family History: Noncontributory ROS REVIEW OF SYSTEMS: 10 Systems were reviewed and negative with the exception of the elements mentioned in the history of present illness. Exam Constitutional appears well nontoxic no acute distress triage nursing summary reviewed, vital signs reviewed, awake/alert. Eyes normal conjunctivae and sclera, EOMI, PERRLA. HENT head/neck atraumatic on exam however patient complains of right posterior occiput pain, mildly tender, no hematoma, no scalp black, moist mucus membranes, no epistaxis, neck supple/ no meningismus, no raccoon eyes. Respiratory clear to auscultation bilaterally, normal breath sounds, no respiratory distress, no wheezing. Cardiovascular chest wall; no crepitus, some mild tender palpation right lateral chest wall mid axillary line. Lower chest wall. rate normal, regular rhythm, no murmur, no edema, distal pulses normal. Gastrointestinal no abdominal pain on exam soft, non-tender, no rebound, no guarding, normal bowel sounds, no distension, no pulsatile mass. Genitourinary no CVA tenderness. Musculoskeletal no midline vertebral tenderness, full range of motion, no calf swelling, no tenderness of extremities, no meningismus, good pulses, neurovascularly intact. Skin pink, warm, & dry, no rash, skin atraumatic. Neurologic awake, alert and oriented x 3, AAOx3, moves all 4 extremities equally, motor intact, sensory intact, CN II-XII intact, normal cerebellar, normal vision, normal speech. Psychiatric normal mood/affect. Heme/Lymph/Immune no lymphadenopathy. Differential Diagnosis: Includes but is not limited to in a particular order multiple contusions, mechanical trip and fall, syncope, dehydration, electrolyte disturbance, cardiac arrhythmia, vasovagal syncope, mi, rib fractures, closed head injury, intracranial bleed, skull fracture Medical Decision Making: Plan for this patient CT scan head without contrast for trauma, chest x-ray two view for repeat evaluation, basic blood work, EKG, IV fluid bolus, ibuprofen for pain control re-evaluate. Re-evaluation: CT scan head without contrast for trauma and fall. Negative for acute traumatic injury called to me by Dr. Amaya. EKG interpretation by me on record in [facility] system. Impression time of EKG 1:27 a.m. Sinus rhythm rate of 76, no signs of acute ischemia no signs of cardiac arrhythmia. No ST elevation no ST depression or T-wave abnormalities no prolonged intervals. Unremarkable EKG. Patient's blood work reviewed. Additionally patient's EKG reviewed patient's EKG reveals no signs of ischemia or cardiac arrhythmia. The patient has been monitored for over 3 hr in the emergency room no signs of cardiac arrhythmia The patient's chest x-ray negative for acute traumatic injury. I did re-evaluate the patient at 3:43 a.m. Is resting comfortably no acute distress. Neurological exam is unremarkable. Given that he fell and had head strike it is possibly the patient has a concussion or closed his injury I have discussed return precautions with the patient understands return emergency develops worsening headache, vomiting not doing well. - Personal History Current Tetanus Diphtheria and Acellular Pertussis (TDAP): Yes - Medical/Surgical History Hx Asthma: Yes Hx Chronic Respiratory Disease: No Hx Diabetes: No Hx Cardiac Disease: No Hx Renal Disease: No Hx Cirrhosis: No Hx Alcoholism: No Hx HIV/AIDS: No Hx Splenectomy or Spleen Trauma: No Other PMH: PMH: pituitary prolactinoma, possible SANJIV, HTN, hyperlipidemia, hx giardia, hx recurrent pneumonia. PSH:tonsillectomy - Social History Smoking Status: Never smoked Constitutional: Initial Vital Signs Temperature (C) 36.5 C 09/09/18 00:36 Heart Rate 80 09/09/18 00:36 Respiratory Rate 18 09/09/18 00:36 Blood Pressure 149/90 H 09/09/18 00:36 O2 Sat (%) 96 09/09/18 00:36 O2 Delivery Mode Room Air Allergies/Adverse Reactions: hydrocodone Allergy (Intermediate, Verified 04/19/17 15:18) Vomiting lisinopril Allergy (Intermediate, Verified 04/19/17 15:18) Other-Enter Comments Home Medications: Medication Instructions Recorded Aspirin [Aspirin 81mg (*)] 81 mg PO DAILY 08/09/14 Testosterone IM [Testosterone 200 mg IM Q10D 08/09/14 100mg/ml IM inj (*)] Albuterol [Proventil Inhaler HFA 1 - 2 puffs IH DAILY PRN 07/01/16 (*)] Atorvastatin Calcium [Lipitor 40 40 mg PO DAILY 07/01/16 mg (*)] Chlorthalidone [Chlorthalidone 25 25 mg PO DAILY 07/01/16 mg (*)] Multivitamins [Multivitamin (*)] 1 each PO DAILY 07/01/16 Acetaminophen [Tylenol ES 500 mg 500 mg PO Q6HRS PRN #0 tab 04/25/17 (*)] Naloxone HCl [Narcan] 0.1 mg IVP Q2M PRN #0 inj 04/25/17 Cabergoline 09/09/18 DULoxetine 09/09/18 Dicyclomine 09/09/18 Gabapentin 09/09/18 Vitamin B-12 09/09/18 Medical Decision Making - Data Points Laboratory Results: Laboratory Results 09/09/18 01:15 09/09/18 01:15 09/09/18 09/09/18 09/09/18 01:22 01:15 01:15 WBC 9.88 10^3/uL H 10^3/uL (3.80-9.50) RBC 4.42 10^6/uL 10^6/uL (4.40-6.38) Hgb 13.9 g/dL g/dL (13.7-17.5) Hct 39.7 % L % (40.0-51.0) MCV 89.8 fL fL (81.5-99.8) MCH 31.4 pg pg (27.9-34.1) MCHC 35.0 g/dL g/dL (32.4-36.7) RDW 13.7 % % (11.5-15.2) Plt Count 245 10^3/uL 10^3/uL (150-400) MPV 10.4 fL fL (8.7-11.7) Neut % (Auto) 64.8 % % (39.3-74.2) Lymph % (Auto) 23.2 % % (15.0-45.0) Mcmullen % (Auto) 8.1 % % (4.5-13.0) Eos % (Auto) 2.8 % % (0.6-7.6) Baso % (Auto) 0.6 % % (0.3-1.7) Nucleat RBC Rel Count 0.0 % % (0.0-0.2) Absolute Neuts (auto) 6.40 10^3/uL 10^3/uL (1.70-6.50) Absolute Lymphs (auto) 2.29 10^3/uL 10^3/uL (1.00-3.00) Absolute Monos (auto) 0.80 10^3/uL 10^3/uL (0.30-0.80) Absolute Eos (auto) 0.28 10^3/uL 10^3/uL (0.03-0.40) Absolute Basos (auto) 0.06 10^3/uL 10^3/uL (0.02-0.10) Absolute Nucleated RBC 0.00 10^3/uL 10^3/uL (0-0.01) Immature Gran % 0.5 % % (0.0-1.1) Immature Gran # 0.05 10^3/uL 10^3/uL (0.00-0.10) Sodium 137 mEq/L mEq/L (135-145) Potassium 3.9 mEq/L mEq/L (3.3-5.0) Chloride 101 mEq/L mEq/L (97-110) Carbon Dioxide 25 mEq/l mEq/l (22-31) Anion Gap 11 mEq/L mEq/L (6-14) BUN 14 mg/dL mg/dL (7-23) Creatinine 0.9 mg/dL mg/dL (0.7-1.3) Estimated GFR > 60 Glucose 95 mg/dL mg/dL (70-100) Calcium 9.4 mg/dL mg/dL (8.5-10.4) Magnesium 1.8 mg/dL mg/dL (1.6-2.3) Total Bilirubin 0.5 mg/dL mg/dL (0.1-1.4) Conjugated Bilirubin 0.2 mg/dL mg/dL (0.0-0.5) Unconjugated Bilirubin 0.3 mg/dL mg/dL (0.0-1.1) AST 30 IU/L IU/L (17-59) ALT 47 IU/L IU/L (21-72) Alkaline Phosphatase 74 IU/L IU/L (38-126) POC Troponin I 0.00 ng/mL ng/mL (0.00-0.08) Total Protein 7.2 g/dL g/dL (6.3-8.2) Albumin 4.1 g/dL g/dL (3.5-5.0) Medications Given: Discontinued Medications Sodium Chloride (Ns) 1,000 mls @ 0 mls/hr IV EDNOW ONE; Wide Open PRN Reason: Protocol Stop: 09/09/18 00:54 Last Admin: 09/09/18 01:14 Dose: 1,000 mls Ibuprofen (Motrin) 800 mg PO EDNOW ONE Stop: 09/09/18 00:55 Last Admin: 09/09/18 01:20 Dose: Not Given Point of Care Test Results: Chemistry 09/09/18 01:22 POC Troponin I 0.00 ng/mL ng/mL (0.00-0.08) Departure - Departure Disposition: Home, Routine, Self-Care Clinical Impression: Head injury Qualifiers: Encounter type: initial encounter Qualified Code(s): S09.90XA - Unspecified injury of head, initial encounter Concussion Qualifiers: Encounter type: initial encounter Loss of consciousness presence/duration: without LOC Qualified Code(s): S06.0X0A - Concussion without loss of consciousness, initial encounter Condition: Good Instructions: Head Injury (ED), Concussion (ED) Additional Instructions: 1. Follow up with her primary care doctor 2. Return to the ER for worsening symptoms Referrals: Ilia Soria MD [Primary Care Provider] - As per Instructions Lala Lutz MD [Medical Doctor] - As per Instructions
[2018-09-09 01:44] LABS: PLATELET COUNT 245 10^3/uL (150-400)
[2018-09-09 03:44] VITALS: BP 125/77
--- NOTE | 2018-09-12 05:48 | CPEKG ---
Test Reason : OPEN Blood Pressure : / mmHG Vent. Rate : 076 BPM Atrial Rate : 076 BPM P-R Int : 178 ms QRS Dur : 089 ms QT Int : 394 ms P-R-T Axes : 018 014 000 degrees QTc Int : 444 ms Sinus rhythm Confirmed by Magdaleno Roach ([id number]) on 09/12/2018 5:47:36 AM Referred By: Confirmed By:Magdaleno Roach
== END 2018-09-09 04:08 | disposition home or self-care (01) ==
DX: S06.0X0A Concussion without loss of consciousness, initial encounter (principal); W18.39XA Other fall on same level, initial encounter; Y92.012 Bathroom of single-family (private) house as the place of occurrence of the external cause; E86.9 Volume depletion, unspecified
CPT/HCPCS: 84484-PO